=== PATIENT | male | born 1925 | race Caucasian/White ===

== ENCOUNTER 2017-05-03 20:49 | Emergency (ER) | payer MEDICARE, MEDICAID ==
[~2017-05-03] VITALS: Wt 68.0 kg
[2017-05-03 21:33] LABS: BASO % 0.3 % (0.0-1.0); EOS % 0.1 % (1.0-4.0); HEMATOCRIT 30.8 % (42.0-52.0); HEMOGLOBIN 10.4 g/dl (14.0-18.0); LYMPH % 13.8 % (27.0-41.0); MEAN CELL VOLUME 86.8 fl (80.0-94.0); MEAN CORPUSCULAR HGB 29.3 pg (27.0-31.0); MEAN CORPUSCULAR HGB CONC 33.8 g/dl (33.0-37.0); MONO # 0.5 10*3/uL (0.1-1.0); MONO % 6.6 % (3.0-9.0); NEUT # 5.7 10*3/uL (2.3-7.9); NEUT % 78.6 % (47.0-73.0); PLATELET COUNT AUTOMATED 253 10*3/uL (130-400); RED BLOOD COUNT 3.55 10*6/uL (4.50-5.90); RED CELL DISTRI WIDTH 15.7 % (0-14.5); WHITE BLOOD COUNT 7.3 10*3/uL (4.8-10.8)
[2017-05-03 21:48] LABS: ALBUMIN 2.5 gm/dl (3.1-4.5); ALKALINE PHOSPHATASE 58 U/L (45-117); BUN 17 mg/dl (7-24); CHLORIDE 104 mmol/L (98-107); CREATININE 0.97 mg/dL (0.70-1.30); POTASSIUM 4.4 mmol/L (3.5-5.1); SGOT/AST 26 IU/L (3-35); SGPT/ALT 40 U/L (12-78); SODIUM 140 mmol/L (136-145); TOTAL PROTEIN 6.1 gm/dL (6.4-8.2)
[2017-05-03 21:49] LABS: ACETAMINOPHEN (TYLENOL) < 2.0 ug/ml (10-30); ETHYL ALCOHOL < 3.0 mg/dl (<3)
[2017-05-03] MEDS ORDERED: ABILIFY5 MG PO (22:58)
[2017-05-03] MEDS ORDERED: ACCUNEB 0.1.25 MG/1 INH (22:59)
[2017-05-03] MEDS ORDERED: ASPIRIN ADULT L81 M1 PO (23:00)
[2017-05-03] MEDS ORDERED: LIPITOR40 MG PO (23:01)
[2017-05-03] MEDS ORDERED: DIGOX125 MCG PO (23:03)
[2017-05-03] MEDS ORDERED: FLOMAX0.4 MG PO (23:04)
[2017-05-03] MEDS ORDERED: NATURE'S BLEND F1 MG PO (23:04)
[2017-05-03] MEDS ORDERED: GLUCOPHAGE500 M1 PO (23:05)
== END 2017-05-03 22:44 | disposition other institution (70) ==
LOC: ED 20:49
PROVIDERS: Emergency Medicine Emergency Medical Services
DX: F23 Brief psychotic disorder (principal); J45.909 Unspecified asthma, uncomplicated; I48.2 Chronic atrial fibrillation; F32.9 Major depressive disorder, single episode, unspecified; E78.2 Mixed hyperlipidemia; E11.65 Type 2 diabetes mellitus with hyperglycemia; Z98.890 Other specified postprocedural states; Z85.038 Personal history of other malignant neoplasm of large intestine; Z79.899 Other long term (current) drug therapy; Z79.82 Long term (current) use of aspirin

== ENCOUNTER 2017-05-03 22:48 | Inpatient (IN) | payer MEDICARE, MEDICAID ==
[~2017-05-03] VITALS: Ht 172.7 cm; Wt 62.3 kg
--- NOTE | ~2017-05-03 | CON ---
[place], [place] REPORT OF CONSULTATION NAME: KAMERON SEAMAN UNIT #: [id number] ROOM: 310 DOCTOR: PRIMITIVO PEÑALOZA ED.D (TOSIN) BIRTHDATE: [birth year] DOS: 05/07/2017 HISTORY OF PRESENT ILLNESS: The patient is an 89-year-old male referred by Dr. Lane for competency evaluation. At the present time, this patient is on the [facility] Unit at [facility]. He is and has no children, but he has several nieces and nephews who are quite close to him. 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 He states he does have a doctor [facility], but he could not remember the doctor's name. His medical history is pertinent for asthma, CA of the colon, CA of the prostate, brief psychotic disorder and dementia with behavioral disturbance. His medications include Depakote, Abilify, , aspirin, Lipitor, digoxin, Flomax and Glucophage. This patient was awake, alert and oriented to person only. He believes he was in [place], [place], but had no idea he was here in [place]. He believes it is 2011. He has no idea who the java support engineer is. His short and long-term memory appear to be markedly impaired. He did have a urinary tract infection which could impair his cognitive status, although his BUN was not elevated. At the present time, he is clearly not competent to make informed healthcare decisions and I did complete paperwork for guardianship if this is necessary. If he is discharged and his nieces can make decisions for him that would work out well also, but he certainly is not competent to make informed healthcare decisions. DIAGNOSIS: Dementia with behavioral disturbance. RECOMMENDATIONS: In my opinion, this patient is not competent to make informed healthcare decisions and all decision should be made by a guardian or a healthcare surrogate. Thank you very much for this consult. PRIMITIVO PEÑALOZA ED.D CM:CONSTR:REPORT OF CONSULTATION 1641 05/07/[address] MD
--- NOTE | ~2017-05-03 | PR ---
[place], [place] PROGRESS NOTE NAME: KAMERON SEAMAN UNIT #: [id number] ROOM: 317 DOCTOR: MATTHEW VIZCAINO MD BIRTHDATE: [birth year] DOS: 05/09/2017 CHIEF COMPLAINT: "Oh, I am fine, thank you so much, I don't need anything right now." SUMMARY OF THE VISIT: The patient was interviewed in the dining area. He had completed his breakfast and was working on his second cup of coffee. He was bright and pleasant upon approach, very gregarious. Nurses report that he does do very well in the morning, but does tend to sundown in the late afternoon, early evening and can become verbally combative and resistive to care. He also did not sleep very well at all and was up and down most of the night. He is tolerating the current medication regimen well. MENTAL STATUS: He is alert and oriented to self. It is unclear if he realizes he is in the hospital. He is not oriented to time. Mood this morning was fairly euthymic. Affect bright and pleasant. There was no krystyna or hypomania. There were no overt auditory or visual hallucinations. No delusions, no paranoia. Short term memory is exceedingly poor. PLAN: I will continue to increase the Namenda, bringing it from 5 mg twice a day to 10 mg in the morning and 5 mg at night with a target dose of 10 mg b.i.d. in mind. I will increase his nighttime trazodone from 50 to 100 mg at bedtime and check a valproic acid level in the a.m. We will continue to support and monitor, engage in individual and combs milieu activity with the plan to return to the least restrictive environment when psychiatrically stable. MATTHEW VIZCAINO MD CM:PNTRANS [id number] MATTHEW VIZCAINO MD 05/09/17 1040 interface
--- NOTE | ~2017-05-03 | PR ---
[place], [place] PROGRESS NOTE NAME: KAMERON SEAMAN UNIT #: [id number] ROOM: 317 DOCTOR: MATTHEW VIZCAINO MD BIRTHDATE: [birth year] DOS: 05/11/2017 CHIEF COMPLAINT: "Oh, good morning, thank you for breakfast." SUMMARY OF THE VISIT: The patient was interviewed as he sat in his Milka chair finishing the remains of his breakfast. He had eaten the entire tray. He reports he feels well, slept better. Nurses confer that he does sleep a little better lately. He was pleasant and bright. There was no agitation or aggression. There was no mood lability. There was no somnolence, sedation, or other side effects noted. MENTAL STATUS: He is alert and oriented to person, possibly place, although doubtful, not to time. Mood does seem to be trending towards euthymia. Affect is more appropriate. There are no symptoms of krystyna or hypomania. There are no overt auditory or visual hallucinations. No delusions, no paranoia. Short term memory is poor and he processes slowly. PLAN: I will check a valproic acid level in the a.m. to ensure that it is therapeutic, continue to monitor and support, engage in individual and combs milieu activity with the plan to discharge then when psychiatrically stable. MATTHEW VIZCAINO MD CM:PNTRANS [id number] MATTHEW VIZCAINO MD 05/11/17 0942 interface
--- NOTE | ~2017-05-03 | PR ---
[place], [place] PROGRESS NOTE NAME: KAMERON SEAMAN UNIT #: [id number] ROOM: 317 DOCTOR: MYKEL RODRÍGUEZ MD BIRTHDATE: [birth year] DOS: 05/05/2017 SUBJECTIVE: The patient seen and spoke with the staff. Per staff, the patient is pleasantly confused. Medication compliant. No behavioral problems or issues. The patient was in the day area. He mentioned that he feels better, slept well and did not express any other problems or concerns. He seems to be not in any kind of acute distress. MENTAL STATUS EXAMINATION: Pleasant, cooperative. Described his mood as "better." Affect, mood congruent. He denied auditory or visual hallucination. No delusion or paranoia noted. He denies suicidal ideation, intent or plan. He also denied any homicidal ideation, intent or plan. ASSESSMENT: Brief psychotic disorder. PLAN: 1. Continue current medication and care. 2. Continue redirection. 3. Encourage activity. 4. Final medication management and discharge planning by the regular team. MYKEL RODRÍGUEZ MD CM:PNTRANS [id number] [phone] MYKEL RODRÍGUEZ MD 05/13/17 0901 interface
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
--- NOTE | ~2017-05-03 | PR ---
[place], [place] PROGRESS NOTE NAME: KAMERON SEAMAN UNIT #: [id number] ROOM: 310 DOCTOR: MATTHEW VIZCAINO MD BIRTHDATE: [birth year] DOS: 05/07/2017 CHIEF COMPLAINT: "Morning, how are you." SUMMARY OF THE VISIT: The patient was interviewed as he sat drinking coffee and watching television in the dining area. He engaged readily in superficial vague conversation. Today, he reports he has been in the hospital for 5 weeks. He remains grossly confused, but pleasantly so. Nurses report that he remains pleasant for the most part until the early to mid afternoon when he becomes increasingly more confused and agitated, requiring redirection and at times PRNs although they did not need to utilize a p.r.n. yesterday. MENTAL STATUS: He is alert and oriented to self. It is unclear if he knows what hospital he is at and he is certainly not oriented to time. He reports that he came here from his own home and does not mention [facility] at any point. He is pleasant and bright. There is no agitation or aggression. There is no symptom suggestive of hypomania or krystyna. There are no overt auditory or visual hallucinations. He does process slowly and short term memory is exceedingly poor. PLAN: I will go ahead and increase Exelon patch from 4.6 to 9.5 mg daily and begin augmenting it with Namenda 5 mg a day with the plan to titrate this upward as well. Given the fact that he has sundowning at about 2:00 or 3:00 p.m., I will change his Depakote from 250 mg 3 times a day to 250 mg in the morning and at bedtime and 500 mg at 1400 hours to see if this can help decrease some of his afternoon sundowning. If this is ineffective, I may need to add an additional medicine to prevent his sundowning behaviors. Continue to engage him in individual and combs milieu activity with the plan to return back to [place] when stable. MATTHEW VIZCAINO MD CM:PNTRANS [id number] MATTHEW VIZCAINO MD 05/07/17 0938 interface
--- NOTE | ~2017-05-03 | WRIGHTHP ---
[place], [place] PATIENT HISTORY AND PHYSICAL EXAM NAME: KAMERON SEAMAN UNIT #: [id number] ROOM: 310 DOCTOR: Douglas RODRÍGUEZMYKEL BIRTHDATE: [birth year] DOS: 05/04/2017 REASON FOR HOSPITALIZATION: Increased agitated and psychotic behavior. HISTORY OF PRESENT ILLNESS: The patient seen and chart reviewed. An 89-year-old white male with history of dementia, sent from a residential facility because of agitated behavior. He was recently admitted to [facility] with pneumonia. The patient was sent back to the residential after stabilization, but the staff at the nursing facility noted increased agitation and confusion. They reported the patient would grab the staff in a threatening manner. The patient could not be redirected. In the ED, the patient mentioned that he lives with his dad and 8 brothers and sisters in [place]. He also told the ED that one of his sisters is responsible for taking care of the chickens. He was not able to tell the names of the siblings, but told them that he has multiple of brothers and sisters. The patient was pleasant and cooperative during the interview. He was actually sitting in a wheelchair in the day area. He reports doing well. Denied depressed mood or hopelessness. Denied any other neurovegetative signs and symptoms of depression. He denied any psychotic symptoms also. He was not able to recall why he was sent to this residential. PAST MEDICAL HISTORY: Significant for asthma, BPH, chronic atrial fibrillation, history of colon cancer, history of prostatic malignancy, hyperlipidemia and type 2 diabetes. PAST PSYCHIATRIC HISTORY: History of dementia. The patient was not able to give full detail of the history. SUBSTANCE ABUSE HISTORY: The patient denied any drugs or alcohol. SOCIAL HISTORY: The patient is a poor historian, but apparently he was living in a nursing facility. MENTAL STATUS EXAMINATION: The patient was pleasant and cooperative. He was alert, oriented to month and year. He described his mood as "okay." Affect was mood congruent. Thought processes with confabulation. He denied auditory or visual hallucination. No delusion or paranoia noted. He denied suicidal ideation, intent or plan. He also denied homicidal ideation, intent or plan. Insight and judgment impaired ASSESSMENT: 1. Brief psychotic disorder. 2. Dementia with behavioral disturbances. PLAN: 1. I will add Depakote 125 mg twice a day. 2. I will continue Abilify 5 mg at night. 3. Continue other home medication. [place], [place] PATIENT HISTORY AND PHYSICAL EXAM NAME: KAMERON SEAMAN UNIT #: [id number] ROOM: [facility] DOCTOR: Douglas RODRÍGUEZ,MYKEL BIRTHDATE: [birth year] 4. Continue redirection. 5. Encourage activity in groups. MYKEL RODRÍGUEZ MD CM:HISPHYS:PATIENT HISTORY AND PHYSICAL EXAMINATION 1112 [id number] Douglas RODRÍGUEZ 05/04/17 1414 interface
--- NOTE | ~2017-05-03 | PR ---
[place], [place] PROGRESS NOTE NAME: KAMERON SEAMAN UNIT #: [id number] ROOM: 317 DOCTOR: MATTHEW VZICAINO MD BIRTHDATE: [birth year] DOS: 05/12/2017 CHIEF COMPLAINT: "Hello, how are you." SUMMARY OF THE VISIT: The patient was interviewed as he sat in a Milka chair watching television. He stopped and engaged in conversation with me. He remains pleasantly confused. There was no agitation or irritation directed towards me. No verbal or physical aggression. He does seem to be fairly attentive. His responses continued to be short and simple, however. MENTAL STATUS: He is alert and oriented to person, not necessarily place and certainly not time. Mood does seem to be trending towards euthymia. Affect is more appropriate. There is no krystyna or hypomania. There are no overt auditory or visual hallucinations. No delusions, no paranoia. Short term memory has significant gaps, otherwise he is fairly intact. PLAN: I will maintain his current psychotropic regimen, engage in individual and combs milieu activity. Plan is to discharge to [facility] per Dr. Carroll for vascular issues. MATTHEW VIZCAINO MD CM:PNTRANS [id number] MATTHEW VIZCAINO MD 05/12/172135 interface
--- NOTE | ~2017-05-03 | CON ---
[place], [place] REPORT OF CONSULTATION NAME: KAMERON SEAMAN UNIT #: [id number] ROOM: 317 DOCTOR: ELEANOR FAIRBANKS DPM BIRTHDATE: [birth year] DOS: 05/10/2017 SUBJECTIVE: This patient is seen as consulted for care of an ulcer on his right third toe. He also has a wound on his left calf. Staff states his nails are long and he has calluses on the bottom of his feet as well. PAST MEDICAL HISTORY: Positive for BPH, chronic AFib, depression, history of colon cancer, history of prostate cancer, hyperglycemia, hyperlipidemia, normocytic anemia, type 2 diabetes. ALLERGIES: No known drug allergies. CURRENT MEDICATIONS: Include Namenda, Desyrel, Depakote, Lanoxin, Exelon, Geodon, Ativan, vitamin D, Lipitor, Flomax, Glucophage, folic acid. PHYSICAL EXAMINATION: Upon lower extremity physical examination, pedal pulses are decreased. There is dependent edema noted bilaterally with negative Homans sign bilaterally. CFT is delayed. Skin temperature is cool to toes. Skin is thin and shiny. Diminished hair growth is noted. Sensation is diminished bilaterally and symmetrically. There is a small open wound noted at the dorsal portion of the right third toe that is clean and granular. It is partial thickness with no surrounding erythema or drainage. No signs of infection. There is a full thickness wound on the left calf that is not infected. It is fairly clean. He has hyperkeratotic tissue on the plantar surface of his feet. His nails are thick and elongated, mycotic in nature. LABORATORY DATA: He had a venous ultrasound, which was negative for DVT. He had an arterial ultrasound, which showed evidence of right popliteal artery stenosis. Posterior tibial artery and dorsalis pedis artery stenosis, monophasic flow. On the left, there was ayyv-tj-auvlunwz peripheral vascular disease, monophasic flow as well. ASSESSMENT: Peripheral artery disease; ulcer, right third toe, noninfected; onychomycosis and hyperkeratotic lesions bilaterally. PLAN: Consult is performed. Continue with Bactroban and a dressing to the right third toe wound and the left calf wound. We will come back and do his nails and calluses. Reviewed the arterial studies. I would not recommend any consultation at this time. He has no necrotic tissue of the ulcer and looks healthy. Consider vascular consultation in the future and we will continue to follow the patient while in the hospital. Thank you for the opportunity to take part in care of this patient. [place], [place] REPORT OF CONSULTATION NAME: KAMERON SEAMAN UNIT #: [id number] ROOM: [facility] DOCTOR: ELEANOR FAIRBANKS DPM BIRTHDATE: [birth year] ELEANOR FAIRBANKS DPM CM:CONSTR:REPORT OF CONSULTATION 1216 05/10/17 1433 interface
--- NOTE | ~2017-05-03 | PR ---
[place], [place] PROGRESS NOTE NAME: KAMERON SEAMAN UNIT #: [id number] ROOM: 317 DOCTOR: MATTHEW VIZCAINO MD BIRTHDATE: [birth year] DOS: 05/10/2017 CHIEF COMPLAINT: "Oh good morning, thank you for breakfast." SUMMARY OF THE VISIT: The patient was interviewed in the dining area where he had completed his breakfast and was still sipping on coffee. He engaged readily in bright, pleasant conversation as has been his tendency all this week; however, his behavior becomes extremely problematic in the afternoon and evening when he sundowns and becomes increasingly verbally and physically aggressive. His behavior has been so problematic that he strikes out and is resistive to care. On a positive note, the increase in the trazodone did impact positively on his sleep last night and he was able to sleep through the night much better. MENTAL STATUS: He remains alert and oriented to self only. Mood this morning is fairly pleasant and euthymic. Affect appropriate. There is no hypomania, krystyna or psychosis. He processes very slowly and his responses are short and simple and his short term memory is exceedingly poor. PLAN: I will maximize out the Namenda to 10 mg twice daily. His valproic acid level is low therapeutic at 50.7. I will increase his Depakote sprinkles to 250 b.i.d. and 750 mg at 1600 hours, attempting to bottom load to decrease his sundowning. We will engage in individual and combs milieu activity ultimately returning to the least restrictive environment when psychiatrically stable. MATTHEW VIZCAINO MD CM:PNTRANS 1013 1025 MATTHEW VIZCAINO MD 05/10/17 1024 interface
--- NOTE | ~2017-05-03 | PR ---
[place], [place] PROGRESS NOTE NAME: KAMERON SEAMAN UNIT #: [id number] ROOM: 317 DOCTOR: ELEANOR FAIRBANKS DPM BIRTHDATE: [birth year] DOS: 05/13/2017 SUBJECTIVE: The patient is seen for followup of an ulcer on his right third toe as well as for care of elongated and thickened toenails and a callus on the bottom of his left foot. OBJECTIVE: Pedal pulses are decreased. Dependent edema is seen bilaterally with varicosities and pigment changes. Skin temperature is cool to toes. Skin is thin and shiny. There is diminished hair growth. Sensation appears mildly decreased bilaterally. Ulceration, right third toe is clean and granular with no signs of infection. No purulent drainage or malodor. It is a full thickness wound. Nails 1 through 5 bilaterally are thick, elongated, brittle, dystrophic and discolored with subungual debris present. Hyperkeratotic lesion is seen, plantar left fifth metatarsal head. No open areas noted plantarly. No hemorrhagic tissue. ASSESSMENT: Diabetic ulceration, right third toe; onychomycosis 1 through 5 bilaterally; hyperkeratotic lesion, plantar left foot and peripheral arterial disease. PLAN: Manual debridement of mycotic nails 1 through 5 bilaterally in length and thickness to the level of the nail bed to reduce hazards such as infection. I debrided the hyperkeratotic lesion, plantar left foot. Continue with conservative and local wound care to the right third toe wound. Continue with wound care to the left calf wound. ELEANOR FAIRBANKS DPM CM:PNTRANS 1203 06 ELEANOR FAIRBANKS DPM 05/13/17 190 interface
--- NOTE | ~2017-05-03 | CON ---
[place], [place] REPORT OF CONSULTATION NAME: KAMERON SEAMAN UNIT #: [id number] ROOM: 317 DOCTOR[facility] B[facility]: [birth year] DOS: 05/12/2017 CARDIOLOGY CONSULTATION HISTORY OF PRESENT ILLNESS: The patient is an 89-year-old male. 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 This consultation is because of the severe peripheral vascular disease and a possible angiogram and revascularization to improve the most of the disease in the popliteal and below the popliteal level. Right is more than the left. Dr. Figueredo seen the patient for the changes in the feet and also the nails and also patient has a callus on the bottom of the feet as well. The patient has a previous history of chronic atrial fibrillation, depression, history of colon cancer and benign prostatic hypertrophy, prostate cancer, dyslipidemia and also has glucose intolerance, type 2 diabetes, normocytic anemia. No known allergies. Currently, the patient for the atrial fibrillation is on Lanoxin and Lipitor for the dyslipidemia. The patient is on Glucophage for the diabetes. On physical examination, vital signs were stable. Pedal pulses on both sides significantly diminished. There is some dependent edema bilaterally and the toes are cool to touch and the skin is thin and shiny and diminished. There appears to be diminished perfusion in lower extremity below the knee. A small open wound noted on the dorsal portion of the right parietal appears to be clean and granular, partial thickness wound and no significant dryness with associated abnormal peripheral vascular study noninvasive under [place] classification between 4 and 5. I had a venous ultrasound unremarkable for the deep vein thrombosis. Arterial ultrasound is abnormal, right popliteal artery stenosis and posterior tibial artery and dorsalis pedis arteries were stenosed, monophasic flow on the left side, mild to moderate peripheral vascular disease, monophasic flow as well, so bilateral disease consider more on the right than the left. PHYSICAL EXAMINATION: GENERAL: Not in any acute distress, not dyspneic. LUNGS: No rales. Diminished breath sounds at bases. HEART: S1, S2, irregular. Heart rate is optimal. IMPRESSION: 1. Chronic atrial fibrillation, dyslipidemia. 2. Diabetes type 2. 3. Wound on the right third toe with severe peripheral arterial disease. PLAN: The patient for arteriogram and possible intervention to improve the perfusion more so the right than the left, but the left also any significant disease, we may also address appropriately. I will communicate with Dr. Figueredo [place], [place] REPORT OF CONSULTATION NAME: KAMERON SEAMAN UNIT #: [id number] ROOM: [facility] DOCTOR: JOSE ALEJANDRO [facility] BIRTHDATE: [birth year] and then forward the results to Dr. Vizcaino also. The patient will undergo the angiogram and intervention on Saturday. Thank you very much for asking me to see the patient. I will follow the patient. SUSSY BLOUNT MD CM:CONSTR:REPORT OF CONSULTATION 1019 05/12/17 1243 interface ELEANOR FIGUEREDO DPM and MATTHEW VIZCAINO MD
--- NOTE | ~2017-05-03 | PR ---
[place], [place] PROGRESS NOTE NAME: KAMERON SEAMAN UNIT #: [id number] ROOM: 310 DOCTOR: MATTHEW VIZCAINO MD BIRTHDATE: [birth year] DOS: 05/06/2017 CHIEF COMPLAINT: "Morning sir, how are you?" SUMMARY OF THE VISIT: The patient was interviewed as he sat in the dining area, watching television. He engaged readily in conversation. He remains grossly confused and disoriented. He reports he has been here in the hospital for 6 weeks. He did report he slept well and did have a good breakfast, but could not remember what he had for breakfast. Nurses report that he is generally pleasant until later in the afternoon when he sundowns and becomes increasingly combative and more confused. MENTAL STATUS: He is alert and oriented to person, possibly place, certainly not time. Mood remains somewhat labile. Affect inappropriate. There are no symptoms of krystyna or hypomania, though. There are no delusions or paranoia. No auditory or visual hallucinations were voiced this morning. Short term memory is poor and he processes slowly. PLAN: Vitamin D level is very low at 8.6, so supplement with vitamin D 50,000 International Units weekly. I will discontinue Abilify, Benadryl and Haldol and utilize Depakote 250 mg t.i.d. to decrease impulsivity and stabilize mood. I will also add Exelon patch 4.6 mg a day to maintain or improve ADLs, behavior and cognition. We will engage in individual and combs milieu activity, returning to the least restrictive environment when psychiatrically stable. MATTHEW VIZCAINO MD CM:PNTRANS [id number] MATTHEW VIZCAINO MD 05/06/17 0955 interface
--- NOTE | ~2017-05-03 | PR ---
[place], [place] PROGRESS NOTE NAME: KAMERON SEAMAN UNIT #: [id number] ROOM: 310 DOCTOR: MATTHEW VIZCAINO MD BIRTHDATE: [birth year] DOS: 05/08/2017 CHIEF COMPLAINT: "Oh, I had breakfast and my coffee already, thank you." SUMMARY OF THE VISIT: The patient was interviewed in the dining area where he sat in a Milka chair watching television. As I approached, he engaged readily in conversation and smiled. He reported no problems and stated that he got up, had breakfast and already had his coffee and is feeling well. He was pleasant and bright upon approach. Nurses report, however, that he had a very poor sleep and was up and down most of the night. He does tend to sundown still and still has episodic behaviors later in the afternoon and early evening. MENTAL STATUS: He is alert and oriented to self. Unclear if he realizes he is in the hospital. He is certainly not oriented to time. Mood seems fairly euthymic. Affect is fairly bright. There is no hypomania or krystyna. There are no overt auditory or visual hallucinations. No delusions, no paranoia. He does process slowly and short term memory remains poor. PLAN: I will maximize the Exelon patch from 9.5 to 13.3 mg a day. I will continue to increase the Namenda from 5 mg a day to 5 mg twice daily to augment the Exelon patch. I will add trazodone 50 mg at bedtime to attempt to aid sleep. We will continue to engage in individual and combs milieu activity, returning to the least restrictive environment when psychiatrically stable. MATTHEW VIZCAINO MD CM:PNTRANS 0939 MATTHEW VIZCAINO MD 05/08/17 0938 interface
[2017-05-03] MEDS ORDERED: ABILIFY5 MG PO (22:58)
[2017-05-03] MEDS ORDERED: ACCUNEB 0.1.25 MG/1 INH (22:59)
[2017-05-03] MEDS ORDERED: ASPIRIN ADULT L81 M1 PO (23:00)
[2017-05-03] MEDS ORDERED: LIPITOR40 MG PO (23:01)
[2017-05-03] MEDS ORDERED: DIGOX125 MCG PO (23:03)
[2017-05-03] MEDS ORDERED: FLOMAX0.4 MG PO (23:04)
[2017-05-03] MEDS ORDERED: NATURE'S BLEND F1 MG PO (23:04)
[2017-05-03] MEDS ORDERED: GLUCOPHAGE500 M1 PO (23:05)
[2017-05-03 23:45] VITALS: BP 135/62
[2017-05-03 23:48] VITALS: BP 135/62
[2017-05-04 07:44] VITALS: BP 136/74
[2017-05-04 12:42] LABS: BUN 16 mg/dl (7-24); CHLORIDE 102 mmol/L (98-107); CREATININE 1.01 mg/dL (0.70-1.30); POTASSIUM 4.5 mmol/L (3.5-5.1); SODIUM 139 mmol/L (136-145)
[2017-05-04 12:53] LABS: DIGOXIN 1.13 ng/ml (0.8-2.0)
[2017-05-04 13:47] LABS: VITAMIN D, 25-HYDROXY 8.6 ng/mL (30-100)
[2017-05-04 20:19] VITALS: BP 111/58
[2017-05-05 06:24] LABS: CHOLESTEROL 147 mg/dL (<200); HDL CHOLESTEROL 55 mg/dl (40-60); LDL CHOLESTEROL 75 mg/dL (9-159); TRIGLYCERIDES 87 mg/dl (<150); VLDL CHOLESTEROL 17 mg/dL (6-40)
[2017-05-05 07:46] VITALS: BP 118/72
[2017-05-05 20:01] VITALS: BP 117/68
[2017-05-06 07:53] LABS: BASO % 0.4 % (0.0-1.0); EOS % 0.7 % (1.0-4.0); HEMATOCRIT 30.5 % (42.0-52.0); HEMOGLOBIN 10.6 g/dl (14.0-18.0); LYMPH # 1.2 10*3/uL (1.3-4.4); LYMPH % 21.2 % (27.0-41.0); MEAN CELL VOLUME 86.6 fl (80.0-94.0); MEAN CORPUSCULAR HGB 30.1 pg (27.0-31.0); MEAN CORPUSCULAR HGB CONC 34.8 g/dl (33.0-37.0); MONO # 0.4 10*3/uL (0.1-1.0); MONO % 6.5 % (3.0-9.0); NEUT # 3.9 10*3/uL (2.3-7.9); NEUT % 70.7 % (47.0-73.0); PLATELET COUNT AUTOMATED 226 10*3/uL (130-400); RED BLOOD COUNT 3.52 10*6/uL (4.50-5.90); RED CELL DISTRI WIDTH 15.9 % (0-14.5); WHITE BLOOD COUNT 5.5 10*3/uL (4.8-10.8)
[2017-05-06 08:02] VITALS: BP 121/69
[2017-05-06 11:58] LABS: BILIRUBIN NEGATIVE (NEGATIVE); BLOOD TRACE-INTACT (NEGATIVE); CLARITY CLOUDY (CLEAR); COLOR YELLOW (YELLOW); GLUCOSE NEGATIVE (NEGATIVE); KETONE NEGATIVE (NEGATIVE); LEUKO ESTERASE TRACE (NEGATIVE); NITRITE POSITIVE (NEGATIVE); PH 6.5 (5.0-9.0); UROBILINOGEN 0.2 E.U./dl (0.2-1.0)
[2017-05-06 12:21] LABS: BACTERIA 4+; CALCIUM OXALATE CRYSTALS 2+
[2017-05-06 19:41] VITALS: BP 130/54
[2017-05-07 07:59] VITALS: BP 121/68
[2017-05-07 20:00] VITALS: BP 110/50
[2017-05-08 07:29] VITALS: BP 113/67
[2017-05-08 23:44] VITALS: BP 118/62
[2017-05-09 07:45] VITALS: BP 120/64
[2017-05-09 21:05] VITALS: BP 128/66
[2017-05-10 07:47] VITALS: BP 131/64
[2017-05-10 20:00] VITALS: BP 106/62
[2017-05-11 08:23] VITALS: BP 123/64
[2017-05-11 20:00] VITALS: BP 118/62
[2017-05-12 08:11] VITALS: BP 121/62
[2017-05-12 20:00] VITALS: BP 115/58
[2017-05-13 09:25] VITALS: BP 118/64
[2017-05-13] MEDS ORDERED: TRAZADONE HYDR100 MG PO (09:52)
[2017-05-13] MEDS ORDERED: Vitamin D PO (09:52)
[2017-05-13] MEDS ORDERED: MEMANTINE HCL10 MG PO (09:52)
[2017-05-13] MEDS ORDERED: EXELON13.3 MG/21 T (09:52)
[2017-05-13] MEDS ORDERED: DIVALPROEX SOD125 M1 PO ×2 (09:52)
== END 2017-05-13 13:08 | disposition other institution (70) | DRG 56 ==
LOC: 3N 22:48
PROVIDERS: Internal Medicine; Psychiatry & Neurology Psychiatry
PROC: 0HBRXZZ Excision of Toe Nail, External Approach (ICD-10-PCS; principal; 2017-05-13)
DX: G30.9 Alzheimer's disease, unspecified (principal); E43 Unspecified severe protein-calorie malnutrition; E11.621 Type 2 diabetes mellitus with foot ulcer; E11.51 Type 2 diabetes mellitus with diabetic peripheral angiopathy without gangrene; E11.65 Type 2 diabetes mellitus with hyperglycemia; I48.2 Chronic atrial fibrillation; B35.1 Tinea unguium; D64.9 Anemia, unspecified; F23 Brief psychotic disorder; F02.81 Dementia in other diseases classified elsewhere, unspecified severity, with behavioral disturbance; Z68.1 Body mass index [BMI] 19.9 or less, adult; J45.909 Unspecified asthma, uncomplicated; L97.519 Non-pressure chronic ulcer of other part of right foot with unspecified severity; X58.XXXA Exposure to other specified factors, initial encounter; E78.5 Hyperlipidemia, unspecified; N40.0 Benign prostatic hyperplasia without lower urinary tract symptoms; F63.81 Intermittent explosive disorder; L85.9 Epidermal thickening, unspecified; L57.0 Actinic keratosis; E78.2 Mixed hyperlipidemia; F32.9 Major depressive disorder, single episode, unspecified; S90.934A Unspecified superficial injury of right lesser toe(s), initial encounter; Z85.038 Personal history of other malignant neoplasm of large intestine; Z85.46 Personal history of malignant neoplasm of prostate; Y93.89 Activity, other specified; Y92.098 Other place in other non-institutional residence as the place of occurrence of the external cause; Y99.8 Other external cause status; Z79.899 Other long term (current) drug therapy; Z79.82 Long term (current) use of aspirin; Z87.01 Personal history of pneumonia (recurrent); Z79.4 Long term (current) use of insulin; Z79.84 Long term (current) use of oral hypoglycemic drugs